=== PATIENT | female | born 1960 | race Caucasian/White ===

== ENCOUNTER 2018-03-31 06:32 | Inpatient (IN) | payer OTHER ==
[~2018-03-31] VITALS: Ht 160 cm; Wt 83.5 kg
[2018-03-31 06:32] VITALS: BP_SYST 105
[2018-03-31] MEDS ORDERED: PANT20TA2 PO (06:46)
[2018-03-31] MEDS ORDERED: NEU300 PO (06:46)
[2018-03-31] MEDS ORDERED: RANI-362 PO (06:46)
[2018-03-31] MEDS ORDERED: LEVO75TA7 PO (06:46)
[2018-03-31] MEDS ORDERED: ONDA4TAB5 PO (06:46)
[2018-03-31] MEDS ORDERED: APIX5TAB PO (06:46)
[2018-03-31] MEDS ORDERED: NACL 0.9% 1,000 ML IV ONE (06:58)
[2018-03-31] MEDS ORDERED: ASPIRIN 81 MG TAB.CHEW PO ONE (07:00)
[2018-03-31] MEDS ORDERED: ONDANSETRON HCL 4 MG/2 ML VIAL IVP ONE (07:00)
[2018-03-31] MEDS ORDERED: ASPIRIN 81 MG TAB.CHEW ONE (07:01)
[2018-03-31 07:28] LABS: BASOPHILS # (AUTO) 0.1 K/uL (0.0-0.2); BASOPHILS % (AUTO) 0.9 % (0.0-2.0); EOSINOPHILS # (AUTO) 0.4 K/uL (0.0-0.4); EOSINOPHILS % (AUTO) 5.9 % (0.0-4.0); HEMATOCRIT 33.1 % (36-48); HEMOGLOBIN 10.6 g/dL (12.0-16.0); LYMPHOCYTES # (AUTO) 2.2 K/uL (1.0-5.5); LYMPHOCYTES % (AUTO) 33.7 % (20.5-51.5); MEAN CORPUSCULAR HEMOGLOBIN 25 pg (27-31); MEAN CORPUSCULAR HGB CONC 32 % (32-36); MEAN CORPUSCULAR VOLUME 77 fL (79.0-98.0); MONOCYTES # (AUTO) 0.4 K/uL (0.0-1.0); MONOCYTES % (AUTO) 6.6 % (1.7-9.3); NEUTROPHILS # (AUTO) 3.5 K/uL (1.8-7.7); NEUTROPHILS % (AUTO) 52.9 % (40.0-70.0); PLATELET COUNT (AUTO) 457 K/uL (130-430); RED BLOOD CELL COUNT(AUTO) 4.32 MIL/uL (4.2-6.2); RED CELL DISTRIBUTION WIDTH 16.6 % (9.0-15.0); WHITE BLOOD COUNT (AUTO) 6.6 K/uL (4.8-10.8)
[2018-03-31 07:41] LABS: CALCIUM 8.9 mg/dL (8.4-11.0); CREATININE 0.76 mg/dL (0.55-1.30)
[2018-03-31 07:46] LABS: ALBUMIN 3.3 g/dL (3.4-4.8); TOTAL BILIRUBIN 0.3 mg/dL (0.0-1.0)
[2018-03-31 08:36] LABS: PROTHROMBIN TIME 10.3 SECS (9.5-12.5)
[2018-03-31] MEDS ORDERED: HEPARIN SODIUM,PORCINE 5000 UNITS/ML VIAL IVP ONE (09:15)
[2018-03-31] MEDS ORDERED: HEPARIN 25,000 UNITS/D5W 250ML 250 ML IV ONE (09:15)
[2018-03-31] MEDS ORDERED: NS 500 ML IV ONE (09:15)
[2018-03-31] MEDS ORDERED: LORazepam 2 MG/ML VIAL (FOR ER USE) IVP ONE (10:00)
[2018-03-31] MEDS ORDERED: IOHEXOL 350 mgI/mL, 150 ML INFUS..BTL IV ONE (10:07)
[2018-03-31 13:24] VITALS: BP_SYST 118
[2018-03-31] MEDS ORDERED: HEPARIN 25,000 UNITS/D5W 250ML 250 ML IV PRN (15:15)
[2018-03-31] MEDS ORDERED: HEPARIN SODIUM,PORCINE 2000 UNITS/0.4 ML BOLUS IVP PRN (15:30)
[2018-03-31] MEDS ORDERED: HEPARIN SODIUM,PORCINE 3000 UNITS/0.6 ML BOLUS IVP PRN (15:30)
[2018-03-31 16:09] VITALS: BP_SYST 116
[2018-03-31] MEDS: HEPARIN 25,000 UNITS in 250 ML PREMIX IV PRN (17:39)
[2018-03-31 19:30] VITALS: BP_SYST 106
[2018-03-31] MEDS ORDERED: LORazepam 2 MG/ML VIAL IVP PRN (20:30)
[2018-03-31] MEDS ORDERED: MORPHINE 2 MG/ML INJ. SYRINGE IVP PRN (20:30)
[2018-03-31] MEDS ORDERED: ONDANSETRON HCL 4 MG/2 ML VIAL IVP PRN (20:30)
[2018-03-31] MEDS ORDERED: GABAPENTIN 300 MG CAPSULE PO SCH (21:00)
[2018-03-31] MEDS: ACETAMINOPHEN 325 MG TABLET PO PRN (21:23)
[2018-03-31 23:30] VITALS: BP_SYST 129
[2018-04-01] MEDS: HEPARIN 25,000 UNITS in 250 ML PREMIX IV PRN ×2 (00:38→05:30)
[2018-04-01 05:00] VITALS: BP_SYST 110
[2018-04-01] MEDS: ACETAMINOPHEN 325 MG TABLET PO PRN (06:33)
[2018-04-01] MEDS ORDERED: LEVOTHYROXINE SODIUM 0.025 MG TABLET PO SCH (07:00)
[2018-04-01 08:10] VITALS: BP_SYST 108
[2018-04-01] MEDS ORDERED: PANTOPRAZOLE SODIUM 40 MG TAB PO SCH (09:00)
[2018-04-01] MEDS ORDERED: APIXABAN 2.5 MG TABLET PO ONE (10:30)
[2018-04-01 10:41] VITALS: BP_SYST 108
[2018-04-01] MEDS ORDERED: APIXABAN 2.5 MG TABLET PO SCH (21:00)
[2018-04-03 07:06] LABS: PROTEIN S ACTIVITY 63 % (63-140)
== END 2018-04-01 11:30 | disposition home or self-care (01) | DRG 176 ==
LOC: SED 06:32 → STU 12:41
PROVIDERS: ADMIT Internal Medicine Hospice and Palliative Medicine; ATTEND Internal Medicine Hospice and Palliative Medicine
DX: I26.99 Other pulmonary embolism without acute cor pulmonale (principal); E66.9 Obesity, unspecified; G62.9 Polyneuropathy, unspecified; D53.9 Nutritional anemia, unspecified; K21.9 Gastro-esophageal reflux disease without esophagitis; Z79.899 Other long term (current) drug therapy; Z98.891 History of uterine scar from previous surgery; Z98.84 Bariatric surgery status; Z68.32 Body mass index [BMI] 32.0-32.9, adult
CPT/HCPCS: 36415; 71045; 71275; 80053; 81403; 81407; 81479; 83880; 84484; 85025; 85302; 85306; 85610-TC; 85730-TC; 87081; 93005; 93306; 93970; 96361; 96374; 96375; 99285; J1644; J2060; J2405; J7040; Q9967

== ENCOUNTER 2023-01-06 18:26 | Emergency (ER) | payer OTHER ==
[~2023-01-06] VITALS: Ht 157.5 cm; Wt 74.8 kg
[~2023-01-06 18:26] MED LIST: APIX5TAB PO; LEVO75TA7 PO; NEU300 PO; ONDA4TAB5 PO; PANT20TA2 PO; RANI-362 PO
[2023-01-06] MEDS ORDERED: PIPERACILLIN/TAZO 3.375 GM in D5W 50 ML IV ONE (18:45)
[2023-01-06] MEDS ORDERED: NS 1000 ML IV.SOLN IV ONE (18:45)
[2023-01-06 18:50] VITALS: BP_SYST 126
--- NOTE | 2023-01-06 19:03 | NUR ---
ER at bedside examining patient.
[2023-01-06 19:16] LABS: BASOPHILS # (AUTO) 0.1 K/uL (0.0-0.2); BASOPHILS % (AUTO) 0.5 % (0.0-2.0); EOSINOPHILS # (AUTO) 0.1 K/uL (0.0-0.4); EOSINOPHILS % (AUTO) 0.8 % (0.0-4.0); HEMATOCRIT 33.6 % (36-48); LYMPHOCYTES % (AUTO) 7.8 % (20.5-51.5); MEAN CORPUSCULAR HEMOGLOBIN 27 pg (27-31); MEAN CORPUSCULAR HGB CONC 33 % (32-36); MEAN CORPUSCULAR VOLUME 81 fL (79.0-98.0); MONOCYTES # (AUTO) 0.5 K/uL (0.0-1.0); MONOCYTES % (AUTO) 3.6 % (1.7-9.3); NEUTROPHILS # (AUTO) 11.1 K/uL (1.8-7.7); NEUTROPHILS % (AUTO) 87.3 % (40.0-70.0); PLATELET COUNT (AUTO) 295 K/uL (130-430); RED BLOOD CELL COUNT(AUTO) 4.14 MIL/uL (4.2-6.2); RED CELL DISTRIBUTION WIDTH 14.9 % (9.0-15.0); WHITE BLOOD COUNT (AUTO) 12.7 K/uL (4.8-10.8)
[2023-01-06 19:27] LABS: ANION GAP 11 (5-15); CALCIUM 8.3 mg/dL (8.4-11.0); CHLORIDE 101 mmol/L (98-107); CREATININE 0.76 mg/dL (0.55-1.30); GFR AFRICAN AMERICAN 99 mL/min (>90); GLUCOSE 103 mg/dL (70-99); UREA NITROGEN, BLOOD 12 mg/dL (8-21)
[2023-01-06 19:30] LABS: PROTHROMBIN TIME 10.2 SECS (9.5-12.5)
[2023-01-06] MEDS ORDERED: IBUPROFEN 600 MG TABLET PO ONE (19:30)
[2023-01-06 19:34] LABS: ALANINE AMINOTRANSFERASE 22 U/L (12-78); ALBUMIN 3.5 g/dL (3.4-4.8); ASPARTATE AMINOTRANSFERASE 19 U/L (10-37); TOTAL BILIRUBIN 0.5 mg/dL (0.0-1.0)
[2023-01-06] MEDS ORDERED: PIPERACILLIN/TAZOBACTAM 3.375 GM/VIAL (ZOSYN) IV ONE (19:35)
[2023-01-06 21:25] LABS: BILIRUBIN,URINE NEGATIVE (NEGATIVE); BLOOD, URINE 1+ (NEGATIVE); COLOR,URINE YELLOW (YELLOW); GLUCOSE,URINE NEGATIVE (NEGATIVE); KETONES,URINE 1+ (NEGATIVE); LEUKOCYTE ESTERASE ,URINE 2+ (NEGATIVE); NITRITE, URINE POSITIVE (NEGATIVE); PROTEIN URINE 1+ (NEGATIVE); UROBILINOGEN,URINE 0.2 (0.2-1.0)
[2023-01-06 21:33] LABS: CLARITY/URINE HAZY (CLEAR)
[2023-01-06 21:34] LABS: BACTERIA,URINE FEW /HPF (None Seen); MUCUS,URINE None Seen /LPF (None Seen); RBC,URINE 0-3 /HPF (0-3); WBC,URINE 20-50 /HPF (0-3)
[2023-01-06] MEDS ORDERED: ACET-2634 PO (22:02)
[2023-01-06] MEDS ORDERED: CIPR500T5 PO (22:02)
[2023-01-06] MEDS ORDERED: PHE25 PO (22:02)
[2023-01-06 22:45] VITALS: BP_SYST 128
--- NOTE | 2023-01-06 22:45 | NUR ---
Patient given written and verbal discharge instructions and verbalizes understanding. ER MD discussed with patient the results and treatment provided. Patient in stable condition. ID arm band removed. IV catheter removed intact and dressing applied, no active bleeding. Rx of Cipro, Tylenol and promethazine hcl given. Patient educated on pain/fever management and to follow up with PMD. Pain Scale 0/10. Opportunity for questions provided and answered.
--- NOTE | 2023-01-09 15:06 | NUR ---
Microbiology urine culture report received by lab, pt succeptible to Cipro and given Cipro during last visit ,per Dr Krishnan no further treatment needed at this time.
== END 2023-01-06 22:45 | disposition home or self-care (01) ==
LOC: SED 18:26
DX: N39.0 Urinary tract infection, site not specified (principal); R50.9 Fever, unspecified; R35.0 Frequency of micturition; R53.1 Weakness; K21.9 Gastro-esophageal reflux disease without esophagitis; Z79.899 Other long term (current) drug therapy
CPT/HCPCS: 99285; 96365; 71045; 80053; 81000; 85025; 85610; 85730; 87040; 87086; 84484; 36415; 93005; 83605; J2543